=== PATIENT | female | born 1940 | race Caucasian/White ===

== ENCOUNTER 2016-08-27 23:55 | Inpatient (IN) | payer MEDICARE, OTHER ==
--- NOTE | ~2016-08-27 | CN ---
Consultation Report [facility] [address] [place]. [address] NAME: RADHA ALVAREZ : 40 STATUS : ADM IN PAT#: [id number] AGE: 75 ADM/REG DATE : 08/28/16 MR#: [id number] REPORT SERV DATE: 09/17/16 DICTATED BY: GERHARD FRANKS DATE: 09/17/16 REPORT STATUS : Draft TRANSCRIBED BY: MODL DATE: 09/17/16 PSYCHIATRIC CONSULTATION DATE OF CONSULTATION: 09/17/2016 I reviewed this patient's medical record. I discussed patient's status with Dr. Ashton. HISTORY OF PRESENT ILLNESS: Last night this patient who has advanced cardiac and pulmonary failure, made a statement about "wanting to end it all", and said she asked god "to take " her. Today, she told me "I am not getting any better", "I feel bad." When I asked her how she might attempt to hasten her , she said "I would turn off the oxygen." PAST PSYCHIATRIC HISTORY: Review of her old medical records indicates that she has been on an opioid regimen and benzodiazepines for a number of years. She said, she took the Xanax for at least ten years. She was not so sure about the hydrocodone. At this time, these medications appeared to be have been discontinued, possibly to optimize her breathing. SOCIAL HISTORY: She is a alf resident. MENTAL STATUS: She was very weak with noticeable dyspnea. Her mood was dysphoric. She said "I feel bad", "I am breathless", "I have difficulty speaking". "I hurt". Her affect was appropriate. She said, she did not want to continue this struggle. Her thinking was logical. She had no delusions. She had no hallucinations. [facility] - "I thought I would be returning to the alf today." DIAGNOSIS: Depression, associated with a general medical condition. RECOMMENDATIONS: At the discretion of the hospitalist, we should consider restarting her home dose of Xanax and hydrocodone. We should consider if she is a candidate for palliative care. Because of her advanced medical problems with associated weakness and dyspnea, she does not pose a high suicidal risk. Her only plan for suicide if indeed she ever attempted such was to discontinue using supplemental oxygen, and she said she would only do that if she did not begin to feel better. We probably can discontinue special suicide precautions, at the discretion of the hospitalist. BUNNY/STEVEN Gerhard Franks M.D. / [id number] CC: Consultation Report [address] [address] NAME: RADHA ALVAREZ : 40 STATUS : ADM IN PAT#: [id number] AGE: 75 ADM/REG DATE : 08/28/16 MR#: [id number] REPORT SERV DATE: 09/17/16 DICTATED BY: GERHARD FRANKS DATE: 09/17/16 REPORT STATUS : Draft TRANSCRIBED BY: STEVEN DATE: 09/17/16 MD Shubham Hunter M.D.
--- NOTE | ~2016-08-27 | PUL ---
[id number] [place]. [address] NAME: RADHA ALVAREZ : 40 STATUS : ADM IN PAT#: [id number] AGE: 75 ADM/REG DATE : 08/28/16 MR#: [id number] REPORT SERV DATE: 09/04/16 DICTATED BY: AMELIA FORD IV DATE: 09/04/16 REPORT STATUS : Draft TRANSCRIBED BY: MODL DATE: 09/04/16 PULMONARY FUNCTION TEST OVERNIGHT OXIMETRY Studies performed on 3 L of supplemental oxygen. 5 hours and 41 minute of data available for review. The mean oxygen saturation was 95.7%. The lowest scored saturation was 68%. The patient spent 12 minutes and 40 seconds with oxygen saturations less than 88%. There were two periods of oxygen saturation variation of sawtooth pattern that were clustered. It was during these episodes where the oxygen desaturations occurred. The remainder of the study oxygen saturations were well above 90%. IMPRESSION: Significant nocturnal hypoxemia on 3 L of supplemental oxygen. There is a pattern consistent with obstructive sleep apnea that would be mild based on a desaturation index of 14 per hour. Otherwise, oxygen saturations are adequate on the 3 L of supplemental oxygen. Would continue the current supplemental oxygen and obtained a formal polysomnography if clinically indicated. JARAD/STEVEN elia Ford IV, M.D. / [id number] CC: MD Shubham Hunter M.D.
--- NOTE | ~2016-08-27 | HP ---
History And Physical [id number] [facility] [place]. [address] NAME: RADHA ALVAREZ : 40 STATUS : ADM IN [facility]#: [id number] AGE: 75 ADM/REG DATE : 08/28/16 MR#: [id number] REPORT SERV DATE: 08/28/16 DICTATED BY: LISA CORONEL DATE: 08/28/16 REPORT STATUS : Draft TRANSCRIBED BY: MODL DATE: 08/28/16 DATE OF ADMISSION: 08/28/2016 POINT OF ENTRY: [facility]. PRIMARY CARE PHYSICIAN: Dr. Shubham Hurst. PRIMARY SUPERVISOR BAKING: Dr. Harp. CHIEF COMPLAINT: Shortness of breath and weight gain. HISTORY OF PRESENT ILLNESS: Ms. Alvarez is a 75-year-old female with history of chronic diastolic congestive heart failure as well as COPD, on chronic 2 to 3 L by nasal cannula as well as cor pulmonale and pulmonary hypertension who presents to the emergency department today with reports of progressive worsening shortness of breath, dyspnea on exertion, lower extremity edema as well as reported 14-pound weight gain over the past five days. Patient states that she has always had shortness of breath, but for the last few weeks has progressively worsened. It is primarily with exertion. She denies any shortness of breath at rest or orthopnea, but does endorse some worsening of her chronic lower extremity edema. Patient also states that she has had a 14-pound weight gain over the past five days as measured by the staff at her at [facility]. Patient states that she does not think that she is on a sodium or fluid restricted diet while at [facility] and states that the food there is very salty to begin with. Reports compliance with her Bumex; however, states that on days of chemotherapy, does not take her Bumex. She denies any recent fevers, night sweats, chills, chest pain, abdominal pain, nausea, vomiting, diarrhea, constipation, melena, hematochezia, or hematemesis. States she has had a recent bout of bronchitis, which she feels is changed over now to pneumonia as she continues to cough up blood-tinged sputum; however, that has improved dramatically over the last few days. On initial evaluation in the emergency department is notable for stable vital signs. BNP elevated at 695. Chest x-ray, very poor inspiration, but does show marked cardiomegaly as well as some intravascular volume overload. Troponin was negative. Hemoglobin/hematocrit 9.6/33.0 are down from last known values in 03/2016. Patient was given 1 mg of IV Bumex and admitted to the Hospitalist Service. REVIEW OF SYSTEMS: Comprehensive review of systems otherwise negative unless listed in history of present illness. PREVIOUS MEDICAL HISTORY: 1. Chronic diastolic congestive heart failure. 2. COPD, on 2-3 L by nasal cannula. History And Physical [address] [address] NAME: RADHA ALVAREZ : 40 STATUS : ADM IN [facility]#: [id number] AGE: 75 ADM/REG DATE : 08/28/16 MR#: [id number] REPORT SERV DATE: 08/28/16 DICTATED BY: LISA CORONEL DATE: 08/28/16 REPORT STATUS : Draft TRANSCRIBED BY: MODTiago DATE: 08/28/16 3. Chronic hypercarbic and hypoxic respiratory failure. 4. Cor pulmonale. 5. Pulmonary hypertension. 6. Aortic sclerosis. 7. Permanent atrial fibrillation, status post ablation. 8. 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 9. Morbid obesity. 10.Obstructive sleep apnea and obesity hypoventilation syndrome, noncompliant with CPAP or BiPAP. 11.Hypothyroidism. 12.Insulin-dependent diabetes mellitus type 2. SURGICAL HISTORY: 1. Atrial fibrillation ablation. 2. Cataracts. 3. Tonsillectomy. ALLERGIES: 1. TYLENOL SINUS. 2. CODEINE. 3. AMIODARONE. 4. STATINS. 5. ALBUTEROL. 6. LASIX. 7. SOTALOL. 8. DILTIAZEM. HOME MEDICATIONS: 1. Tylenol 650 mg q.4 hours p.r.n. 2. Albuterol two puff inhalation q.i.d. p.r.n. 3. Xanax 0.25 mg b.i.d. 4. Xanax 0.25 mg p.r.n. 5. Aspirin 325 mg daily. 6. Tenormin 12.5 mg with lunch. 7. Tessalon Perles 200 mg t.i.d. 8. Bisacodyl 10 mg p.o. daily p.r.n. 9. Bumex 2 mg daily. 10.Calcium carbonate 500 mg q.i.d. 11.Pradaxa 150 mg b.i.d. 12.Delsym 60 mg q.12 hours p.r.n. 13.Colace 100 mg b.i.d. p.r.n. 14.Pepcid 20 mg b.i.d. 15.Breo Ellipta one puff daily. 16.Robitussin 100 mg q.6 hours p.r.n. 17.[place] 5/325, one tab q.i.d. 18.Insulin sliding scale. 19.Atrovent q.4 hours p.r.n. History And Physical [address] [address] NAME: RADHA ALVAREZ : 40 STATUS : ADM IN [facility]#: [id number] AGE: 75 ADM/REG DATE : 08/28/16 MR#: [id number] REPORT SERV DATE: 08/28/16 DICTATED BY: LISA CORONEL DATE: 08/28/16 REPORT STATUS : Draft TRANSCRIBED BY: STEVEN DATE: 08/28/16 20.Levothyroxine 50 mcg daily. 21.Melatonin 3 mg at bedtime. 22.Milk of magnesia 30 mL daily p.r.n. 23.Singulair 10 mg daily. 24.Multivitamin one tab daily. 25.Zofran 4 mg q.i.d. p.r.n. 26.MiraLAX 17 g daily. 27.Potassium chloride 20 mEq daily. SOCIAL HISTORY: Denies any tobacco, alcohol, or illicits, is currently living in [facility]. FAMILY MEDICAL HISTORY: Mother with diabetes. Father's history is unknown as parents were . Siblings' health history is unknown or otherwise healthy. LABS AND IMAGIN. White count is 5.3, hemoglobin is 9.6, hematocrit is 33.0 platelet count is diffusing 235, INR is 2.8. 2. Sodium is 140, potassium 4.1, chloride 99, carbon dioxide 40, BUN 25, creatinine 0.80 glucose is 139, calcium is 9.0, is magnesium is 2.2. 3. Troponin less than 0.02. BNP 695. 4. EKG per my review shows atrial fibrillation with no evidence of any acute ischemia or infarction. 5. Chest x-ray per my review limited study secondary to limited penetration and body habitus; however, it does show cardiomegaly, right pleural effusion as well as some intravascular volume overload and pulmonary venous congestion. PHYSICAL EXAMINATION: VITAL SIGNS: Temperature is 97.5 degrees Fahrenheit, pulse is 64, respirations 24, saturating 90% on 3 L by nasal cannula, blood pressure 117/59. GENERAL: Patient is awake, alert, in no acute distress. Resting comfortably. She is a morbidly obese, chronically ill-appearing, elderly female, in no acute distress. HEENT: Atraumatic and normocephalic. Moist mucous membranes. Pupils are equal, round, reactive to light and accommodation. Extraocular eye movements are intact. No scleral icterus. NECK: Positive jugular venous distention. No carotid bruits. Jugular venous distention is up to the angle of jaw. CARDIAC: Irregularly irregular rate and rhythm. 2/6 systolic murmur best over left lower sternal border. Normal S1, S2. LUNGS: Decreased breath sounds at bases along with bibasilar inspiratory crackles and rales, in no acute distress. ABDOMEN: Obese, soft, nontender, nondistended. Good bowel sounds. No rebound, guarding, or rigidity. EXTREMITIES: Warm and well perfused. Patient has evidence of chronic venous stasis and lower extremity lymphedema with 2+ lower extremity edema. SKIN: Warm and dry. PSYCH: Affect appropriate. History And Physical [address] [address] NAME: RADHA ALVAREZ : 40 STATUS : ADM IN PAT#: [id number] AGE: 75 ADM/REG DATE : 08/28/16 MR#: [id number] REPORT SERV DATE: 08/28/16 DICTATED BY: LISA CORONEL DATE: 08/28/16 REPORT STATUS : Draft TRANSCRIBED BY: MODTiago DATE: 08/28/16 NEURO: Alert and oriented x3. Cranial nerves II through XII are grossly intact. Speech is normal. Gait not assessed. ASSESSMENT AND PLAN: Ms. Alvarez is a 75-year-old female who presents with worsening shortness of breath as well as weight gain and found to have acute on chronic diastolic congestive heart failure. PROBLEM LIST: 1. Acute on chronic diastolic congestive heart failure. 2. Anemia. 3. Chronic hypercarbic and hypoxic respiratory failure. 4. Chronic obstructive pulmonary disease. 5. Cor pulmonale with pulmonary hypertension. 6. Hemoptysis. 7. Non-Hodgkin lymphoma, currently on chemotherapy. PLAN: 1. Acute on chronic diastolic congestive heart failure. We will initially diurese patient with Bumex 1 mg q.8 hours as well as place her on sodium fluid restriction as well as daily weights. It has been about five months since her last echocardiogram, we will repeat it. 2. Chronic hypoxic and hypercapnic respiratory failure. Patient appears to be well compensated at this time, but we will check an ABG given evidence of volume overload and shortness of breath. 3. COPD. Do not appreciate any exacerbation at this time, continue to monitor. 4. Anemia. Patient does have approximately three-point drop in her hemoglobin levels from 03/2016. She denies any known bleeding except for occasional epistaxis. We will check an occult stool as well as iron studies. 5. Reports of hemoptysis. Given reports of sputum production and hemoptysis, we will check a CT of the chest given the limited technical quality of the chest x-ray. 6. DVT prophylaxis. Patient is already on Pradaxa. CODE STATUS: The patient wishes to be full code. JCB/MODL Lisa Coronel MD / [id number] CC: MD Shubham Crane M.D. C. Samuel Ledford, M.D.
--- NOTE | ~2016-08-27 | DS ---
Discharge Summary [address] [place]. [address] NAME: RADHA ALVAREZ : 40 STATUS : ADM IN PAT#: [id number] AGE: 76 ADM/REG DATE : 08/28/16 MR#: [id number] REPORT SERV DATE: 09/23/16 DICTATED BY: FEDE WILSON DATE: 09/23/16 REPORT STATUS : Draft TRANSCRIBED BY: STEVEN DATE: 09/23/16 ADMISSION DATE: 08/28/2016 DISCHARGE DATE: 09/23/2016 Please also refer to history of present illness dictated by Dr. Silverio Owens on 08/28/2016. Please refer to multiple interim discharge summaries dictated by Jesús Bonilla on 09/01/2016, by Dr. Ashton 09/07/2016, by Dr. Logan 09/13/2016, and by Dr. Bonilla on 09/20/2016. I personally saw this patient for last three days, 09/21/2016, 09/22/2016, and 09/23/2016. DISCHARGE DIAGNOSES: 1. Chronic respiratory failure with hypoxemia. 2. Chronic pain. 3. Acute on chronic diastolic congestive heart failure. 4. Hyponatremia, chronic. 5. Urinary tract infection, extended-spectrum beta-lactamases, and pseudomonas. Completed antibiotics. 6. Hypothyroidism. 7. History of Hodgkin lymphoma. 8. Poor functional state. 9. Chronic pain. The patient refused to have any treatments and as well as she wanted comfort care. This was discussed on the previous interim discharge summary by Jesús Bonilla and the patient was waiting for [facility] approval. The patient was approved by [facility] and she is going to [facility]. I spoke also with the patient's sister. She was also in agreement for the patient to go to [facility]. The patient was discharged to [facility] in stable condition. DICTATED BY: Peter Lindsey/STEVEN Fede Wilson M.D. / [id number] CC: Peter Lindsey M.D.
--- NOTE | ~2016-08-27 | IDS ---
Interim Discharge Summary [facility] [address] [place]. [address] NAME: RADHA ALVAREZ : 40 STATUS : ADM IN PAT#: [id number] AGE: 75 ADM/REG DATE : 08/28/16 MR#: [id number] REPORT SERV DATE: 09/07/16 DICTATED BY: ADRY GUEVARA DATE: 09/07/16 REPORT STATUS : Draft TRANSCRIBED BY: MODL DATE: 09/07/16 ADMISSION DATE: 08/28/2016 DISCHARGE DATE: INTERIM DIAGNOSES: Cor pulmonale with acute on chronic diastolic heart failure, refractory edema and anasarca, persistently elevated CO2, chronic retainer, possible chronic COPD, with chronic respiratory failure on chronic O2 usage, possible obesity hypoventilation syndrome component, hypothyroidism, morbid obesity, chronic atrial fibrillation, chronic debility, diabetes type 2. CONSULTANTS: Pulmonary HISTORY OF PRESENT ILLNESS: 75-year-old female, who is now currently a resident of [facility], who presented with multiple repeat admissions for her complaints of dyspnea on exertion, weight gain, and progressive edema. Please see interim course by Jesús Bonilla and H and P by Dr. Owens for complete details. In continuum of hospital course, the patient has been on aggressive IV diuretics with Bumex for significant volume overload. The patient was trialed with Zaroxolyn doses intermittently without resolution. The patient did require IV Lasix drip with fairly good results, however, upon stopping Lasix drip and repeat imaging, the patient had already had additional fluid failure changes on chest x-ray. The patient is now required three additional days of Lasix drip with titrating doses with almost 35 pounds of fluid removal, symptomatic, the patient has felt much better. Additional day of Lasix drips was continued due to chest x-ray still showing fluid failure changes. We will have likely transition to p.o. to control schedule in a.m. The patient has now been more compliant with fluid restriction, which has been notable jeffery in the past. Of note, the patient did have recent chemotherapy by Dr. Dillon and had significant sputum culture that was sent to the lab and awaiting final results. Lytes have continued to be optimized, the patient will need continued physical therapy in anticipation of return back to senior living facility, hopefully in the next three to five days, pending ability to transition to p.o. safely and improved oxygenation status. I have discussed with Pulmonary about chronic CO2 retention. It appears the patient has elevated CO2 at baseline, but is functional at these levels. The patient has refused on repeated accounts even during this stay to wear BiPAP. The patient has requested her wishes of DNR/DNI and has been reflected on POLST form on chart. These desires have also been discussed with family, granddaughter as per the patient's wishes at bedside, who has also been updated on the patient's course. Care to be resumed by Medicine team in a.m. DDN/MODL Adry Guevara MD / [id number] Interim Discharge Summary [address] [address] NAME: RADHA ALVAREZ : 40 STATUS : ADM IN PAT#: [id number] AGE: 75 ADM/REG DATE : 08/28/16 MR#: [id number] REPORT SERV DATE: 09/07/16 DICTATED BY: ADRY GUEVARA DATE: 09/07/16 REPORT STATUS : Draft TRANSCRIBED BY: STEVEN DATE: 09/07/16 CC: MD Shubham Hunter M.D.
--- NOTE | ~2016-08-27 | IDS ---
Interim Discharge Summary [facility] [address] [place]. [address] NAME: RADHA ALVAREZ : 40 STATUS : ADM IN [facility]#: [id number] AGE: 75 ADM/REG DATE : 08/28/16 MR#: [id number] REPORT SERV DATE: 09/01/16 DICTATED BY: JESÚS KIRKLAND DATE: 09/01/16 REPORT STATUS : Draft TRANSCRIBED BY: MODL DATE: 09/01/16 ADMISSION DATE: 08/28/2016 DISCHARGE DATE: CURRENT INTERIM DIAGNOSES: List includes: 1. [id number] diastolic heart failure with refractory edema and anasarca. 2. Elevated CO2 43. 3. Chronic obstructive pulmonary disease, chronic respiratory failure, chronic O2 usage. 4. Hypothyroidism, most recent TSH 4.520. 5. Morbid obesity. 6. Chronic atrial fibrillation. 7. Diabetes type 2. HISTORY OF PRESENT ILLNESS: This is a pleasant 75-year-old white female, who presented with shortness of breath and weight gain, where she had been at [facility]. She had dyspnea with exertion, weight gain, and worsening edema. Please see the initial H and P of Dr. Silverio Owens as the patient was admitted to the Hospitalist Service for further evaluation and treatment. PROCEDURES AND IMAGING DURING THIS ADMISSION: Included a CT of the chest that showed small bilateral pleural effusions and bibasilar atelectasis, suspected interstitial edema, mild ascites, and severe body wall edema in both right and left flank and an echocardiogram showing an ejection fraction of 50% with moderate pulmonary hypertension, and small pericardial effusion. CONTINUATION IN HOSPITAL COURSE: I began seeing the patient on 08/28/2016, where she had been placed on aggressive IV diuresis of IV Bumex and this was continued. The above- described echocardiogram and CT scan were done as well and reviewed. Of note, the patient's TSH was slightly elevated at 4.520, so her Synthroid dosage was adjusted upward from 50 mcg to 75 mcg with instructions to recheck in six weeks. She had some mild pyuria on urinalysis, however, urine culture has been negative. She continued to have refractory edema despite continued IV Bumex and also the addition of Zaroxolyn, so I placed her on a Lasix drip, which has actually increased her diuresis well and I have continued her on that for now. She has been mobilized with physical therapy. Heart failure education team has seen the patient and disposition is to return to senior living facility once she is more euvolemic and I will continue to follow her lab work for electrolyte replacement and also of note, she recently underwent some chemotherapy followed by Dr. Dillon as well. Overall, the patient has improved in the past 24 hours with diuresis, less shortness of breath overall, and was able to participate in physical therapy better. CSC/ILIANAL Jesús Kirkland NP Interim Discharge Summary [address] [address] NAME: RADHA ALVAREZ : 40 STATUS : ADM IN PAT#: [id number] AGE: 75 ADM/REG DATE : 08/28/16 MR#: [id number] REPORT SERV DATE: 09/01/16 DICTATED BY: JESÚS KIRKLAND [facility] DATE: 09/01/16 REPORT STATUS : Draft TRANSCRIBED BY: STEVEN DATE: 09/01/16 / [id number] CC: MD Shubham Hunter M.D.
--- NOTE | ~2016-08-27 | IDS ---
Interim Discharge Summary [facility] [address] [place]. [address] NAME: RADHA ALVAREZ : 40 STATUS : ADM IN PAT#: [id number] AGE: 76 ADM/REG DATE : 08/28/16 MR#: [id number] REPORT SERV DATE: 09/20/16 DICTATED BY: JESÚS KIRKLAND DATE: 09/20/16 REPORT STATUS : Draft TRANSCRIBED BY: MODL DATE: 09/20/16 ADMISSION DATE: 08/28/2016 DISCHARGE DATE: INTERIM DIAGNOSES: List includes: 1. Acute on chronic diastolic heart failure with cor pulmonale. 2. Leukocytosis and hospital-acquired pneumonia. 3. Acute on chronic hypercapnic and hypoxic respiratory failure. 4. Urinary tract infection growing ESBL E. coli and Pseudomonas. 5. Hyponatremia. 6. Hypothyroid. 7. Diabetes type 2. 8. Hemorrhoids. HISTORY OF PRESENT ILLNESS: This 76-year-old white female with multiple comorbidities who originally presented from her long-term facility [facility] with shortness of breath and severe weight gain, dyspnea with exertion and worsening edema. Please see initial H and P of Dr. Silverio Owens. Please see the interim summaries of myself, Dr. Ar Ashton, and Dr. Yeison Logan as this interim summary will cover the dates of 09/14/2016 to 09/20/2016. New consult as of this dictation include [facility]. CONTINUATION OF HOSPITAL COURSE: The patient had reached somewhat of a plateau with her weight loss and fluid volume status and was started to be trialed on metolazone oral antidiuretic but her lab work reflected decreasing sodium as her lab work fell from 132 to 129 to 126. Her metolazone was eventually discontinued, and she was started back on her Bumex diuretic. She was at first being worked up for trilogy approval and disposition back to [facility]. However, as the week progressed, she began to withdraw from the treatment plan and the overall plan of care, refused to work with the nursing staff with the respiratory staff and with the physical therapy staff, occupational therapy staff. She was actually seen by psychiatric Dr. Gerhard Espinosa at one point, as she was concerned actually about some suicidal ideation. This seems to have resolved but she has continued to be withdrawn and more depressed and has declined to eat, declined to get out of bed, and refusing medications and also treatments. She had a spike in her white blood cells and was concerned about hospital-acquired pneumonia so she was started on vanc and Zosyn during the week and also she had significant pyuria along with a low-grade fever that has grown the above-described bacteria, and she is receiving dose of fosfomycin for that as well. Toward, the end of the week I had a lengthy discussion with the patient and her sister Kalyani about her clinical course, and prognosis and the worsening clinical course and her withdrawal from her participation in care, and both have agreed to more palliative and comfort focused care as the best option, and [facility] has been consulted and is currently evaluating the patient for approval and hopeful approval back to [facility] under [facility]. I have updated the patient and the patient's sister at bedside of this progress. They are both in agreement but overall her sodium continues to decline, her creatinine is slightly elevated over the week, and she continued treatment for her recurrent infections. Interim Discharge Summary [address] [place]. [address] NAME: RADHA ALVAREZ : 40 STATUS : ADM IN PAT#: [id number] AGE: 76 ADM/REG DATE : 08/28/16 MR#: [id number] REPORT SERV DATE: 09/20/16 DICTATED BY: JESÚS KIRKLAND DATE: 09/20/16 REPORT STATUS : Draft TRANSCRIBED BY: STEVEN DATE: 09/20/16 [facility]/STEVEN Jesús Kirkland NP / [id number] CC: MD Shubham Hunter M.D.
--- NOTE | ~2016-08-27 | IDS ---
Interim Discharge Summary [facility] [address] [place]. [address] NAME: RADHA ALVAREZ : 40 STATUS : ADM IN PAT#: [id number] AGE: 75 ADM/REG DATE : 08/28/16 MR#: [id number] REPORT SERV DATE: 09/13/16 DICTATED BY: DERRICK BHATIA DATE: 09/13/16 REPORT STATUS : Draft TRANSCRIBED BY: MODL DATE: 09/13/16 ADMISSION DATE: 08/28/2016 DISCHARGE DATE: CURRENT HOSPITAL DIAGNOSES: 1. Cor pulmonale with acute on chronic diastolic heart failure. 2. Anasarca. 3. Persistently elevated CO2. 4. Probable chronic obstructive pulmonary disease. 5. Hypoventilation obesity syndrome. 6. Hypothyroidism. 7. Chronic atrial fibrillation on Pradaxa. 8. Diabetes. CONSULTATIONS AND PROCEDURES: As listed in interim summary by Dr. Ashton on 09/07/2016. CURRENT PHYSICAL FINDINGS AND HISTORY OF PRESENT ILLNESS: Please see initial H and P by Dr. Owens on 08/28/2016, as well as interim summary by Jesús Bonilla, on 09/01/2016, and Dr. Ashton on 09/06/2016. I assumed the patient's care on 09/07/2016, and will dictate from that point. Basically, the patient had been admitted with above complaints and was being diuresed as tolerated. She had already lost over 20 pounds closer to 30 on at that time I took care of her on 09/07/2016, started taking care of her on 09/07/2016. Electrolytes and renal function were not compromised. She was tolerating supplemental O2. She was still minimally active with PT. Blood sugars were well controlled. Her atrial fib was rate controlled and as mentioned, she was on anticoagulants. On 09/08/2016, there was not much change. She did not have any significant complaints. Pulmonary was continuing to follow and was making periodic recommendations in her Bumex adjusting. On 09/09/2016, serial electrolytes were followed. She continued to diuresis well and lose fluid. Her CO2s were starting to climb, however, so on 09/10/2016, she was switched to Diamox. She had an episode in middle of the afternoon on 09/10/2016, where she became hypoxic by pulse oximetry. She responded rapidly to supplemental O2. Additional Diamox was given. On 09/11/2016, she was losing less weight, but was responding to the diuretics and lab was again stable. On the late evening on 09/12/2016, she had another episode, where she seemed obtunded, although, her ABG was essentially baseline. On 09/13/2016, after long discussion with the patient and family current plan is to try and get her qualified for BiPAP or trilogy and return back to [facility] for continued diuresis and Care. DISPOSITION: We will continue diuresis with Diamox as tolerated. Pulmonary is assisting in getting BiPAP or trilogy at [facility]. She will continue her Ayala catheter. Blood sugars and heart rate are well controlled and lab aside from her CO2 retention is reasonable. TLF/MODL Derrick Cassidy Interim Discharge Summary [address] [address] NAME: RADHA ALVAREZ : 40 STATUS : ADM IN PAT#: [id number] AGE: 75 ADM/REG DATE : 08/28/16 MR#: [id number] REPORT SERV DATE: 09/13/16 DICTATED BY: DERRICK BHATIA DATE: 09/13/16 REPORT STATUS : Draft TRANSCRIBED BY: MODL DATE: 09/13/16 Peter Bhatia / [id number] CC: Peter Mayer M.D.
--- NOTE | ~2016-08-27 | CN ---
Consultation Report [facility] [address] [place]. [address] NAME: RADHA ALVAREZ : 40 STATUS : ADM IN PAT#: [id number] AGE: 75 ADM/REG DATE : 08/28/16 MR#: [id number] REPORT SERV DATE: 09/03/16 DICTATED BY: AMELIA FORD IV DATE: 09/03/16 REPORT STATUS : Draft TRANSCRIBED BY: MODL DATE: 09/03/16 PULMONARY CONSULTATION DATE OF CONSULTATION: 09/03/2016 REASON FOR REQUEST: Hypercapnia. HISTORY OF PRESENT ILLNESS: History was obtained from the records and from the patient. Ms Alvarez is a 75-year-old female with a history of acute on chronic diastolic heart failure, chronic atrial fibrillation, hypoxemic chronic hypercapnia, obstructive sleep apnea, noncompliant with CPAP, pulmonary hypertension, B-cell lymphoma, diabetes mellitus, and hypothyroidism who was admitted on the 08/28/2016 with increased weight gain, shortness of breath with peripheral edema, and worsened hypercapnia. The patient has had multiple hospitalizations for decompensation of acute on chronic diastolic heart failure. She carries a diagnosis of "COPD" for which she is on bronchodilator medications. Previous pulmonary function studies in 2014 demonstrated restrictive changes though with borderline hyperinflation. She was only recently placed on bronchodilator medications with Breo Ellipta which she uses daily and an Atrovent nebulizer that she uses on an as-needed basis. She had previously been on supplemental oxygen only at nighttime after being noncompliant with her CPAP, however, currently, she is on supplemental oxygen 24/7. The patient recently was treated for pneumonia and had a cough productive of bloody phlegm which she states she continues to have occasionally. She denies any epistaxis. She denies fevers, chills, or sweats. The patient carries a diagnosis of obstructive sleep apnea of unclear severity for which she was noncompliant with the CPAP therapy. This was almost 10 years ago. She does use supplemental oxygen at nighttime. PULMONARY HISTORY: Remarkable for no history of childhood asthma. She has had pneumonia on multiple occasions and carries the diagnosis of adult obstructive lung disease. She is a lifelong nonsmoker though had secondary smoke exposure from her father. She is up to date on her immunizations though is not quite clear about her Prevnar 13 vaccination status. PAST MEDICAL HISTORY: Remarkable for history of: 1. Acute on chronic diastolic heart failure. 2. Chronic atrial fibrillation. 3. Chronic hypercapnia. 4. Obstructive sleep apnea, noncompliant with CPAP. 5. Pulmonary hypertension. 6. B-cell lymphoma. 7. Diabetes mellitus. 8. Hypothyroidism. SURGERIES: Consultation Report [facility] [id number] [place]. [address] NAME: RADHA ALVAREZ : 40 STATUS : ADM IN PAT#: [id number] AGE: 75 ADM/REG DATE : 08/28/16 MR#: [id number] REPORT SERV DATE: 09/03/16 DICTATED BY: AMELIA FORD IV DATE: 09/03/16 REPORT STATUS : Draft TRANSCRIBED BY: STEVEN DATE: 09/03/16 1. Atrial fibrillation ablation. 2. Cataract surgery. 3. Tonsillectomy and adenoidectomy. ALLERGIES: THE PATIENT IS INTOLERANT OF MULTIPLE MEDICATIONS WITHOUT CLEAR ALLERGIES TO INCLUDE TYLENOL, CODEINE, AMIODARONE, STATINS, ALBUTEROL, LASIX, SOTALOL, AND DILTIAZEM. CURRENT MEDICATIONS: The patient is on aspirin 325 mg daily, Atrovent nebulizer solution while awake q.4 hours, Bumex 2 mg twice a day, Colace 100 mg twice a day, Dulera two puffs twice a day, MD Carey four times a day, NovoLog before meals, Pepcid 20 mg twice a day, potassium 40 mEq daily, Pradaxa 150 mg daily, Singulair 10 mg at nighttime, Synthroid 75 mcg daily, Tenormin 12.5 mg at lunch, and multivitamin daily. SOCIAL HISTORY: Remarkable for no tobacco, alcohol, or illicit drug use. She is , has no children. FAMILY HISTORY: Remarkable for mother with diabetes. She is unaware of her father's history and has a half brother and sister which have no medical problems. REVIEW OF SYSTEMS: 14-systems reviewed and pertinent positives as noted above. PHYSICAL EXAMINATION: GENERAL: This is a morbidly obese, elderly female, in no current distress. VITAL SIGNS: Temperature is 97.6, respiratory rate is 20, saturations are 93% on 2 L, pulse is 85, blood pressure is 126/59. HEENT: Normocephalic, atraumatic. Extraocular movements are intact. Pupils react to light. Sclerae and conjunctivae normal. She has a nasal cannula in place. She has a Mallampati 3 airway with very poor dentition with missing teeth, gingival disease, and a carious teeth. NECK: Without any palpable lymphadenopathy or thyromegaly. CHEST: The patient has bibasilar inspiratory crackles at least half way up bilaterally. No wheezes or rhonchi are noted. Breath sounds are symmetrically diminished. CARDIOVASCULAR: Jugular venous pulsations are difficult to elicit secondary to body habitus. She has 1+ carotid upstrokes. No obvious bruit. She has an irregularly irregular S1, S2 with a 2/6 systolic murmur at the upper sternal border. No clear S3 is noted. Peripheral pulses are diminished. ABDOMEN: Morbidly obese, soft. There are hypoactive bowel sounds. There is no palpable hepatosplenomegaly or masses. EXTREMITIES: Demonstrate chronic venous stasis changes. There is some trace residual peripheral edema. NEUROLOGIC: The patient can move all extremities. Strength is 5-/5 and sensation intact to light touch. LABORATORY DATA: Chest x-ray demonstrates marked cardiomegaly with increased pulmonary venous congestion with small pleural effusions and what appeared to be some interstitial Consultation Report [facility] [id number] [facility] [place]. [address] NAME: RADHA ALVAREZ : 40 STATUS : ADM IN [facility]#: [id number] AGE: 75 ADM/REG DATE : 08/28/16 MR#: [id number] REPORT SERV DATE: 09/03/16 DICTATED BY: AMELIA FORD IV DATE: 09/03/16 REPORT STATUS : Draft TRANSCRIBED BY: STEVEN DATE: 09/03/16 edema. This was confirmed on a chest CT scan from earlier. CBC: Hemoglobin 10, hematocrit 35.2, platelet count was 276,000, white blood cell count is 7.2. Chemistry: Sodium 132, potassium 3.4, chloride is 84, bicarbonate is greater than 45, BUN is 23, creatinine 0.52, glucose are 135, magnesium is 1.8. Earlier blood gas; pH 7.41, pCO2 of 74, pO2 of 95. ASSESSMENT AND PLAN: 1. Respiratory. It is not clear that the patient truly has chronic obstructive pulmonary disease with her likely having obesity hypoventilation syndrome and hypercapnia secondary to chronic diastolic heart failure. We would continue the bronchodilator medications for now. Atrovent will be given via EzPAP. Oxygen will be titrated to maintain saturations in the 90% to 94% range. Overnight oximetry will be obtained on room air. She is noncompliant with CPAP, BiPAP and would likely not use this unless she was in dire respiratory stress. 2. Renal. I will replace the patient's potassium and magnesium. Check phosphate level. Diamox will be given for her alkalosis with a repeat chemistries tomorrow. 3. Infectious disease. A sputum was sent for Gram stain culture. I will probe procalcitonin level as well as blood in the lab. 4. Cardiovascular. We would push diuretics until the creatinine rises since she is currently warm and wet. Her blood pressure is adequately controlled. We will repeat a BNP in morning labs. 5. Endocrinologic. The patient has agreed with the increased dose of the Synthroid associated with a higher TSH. 6. Heme. The patient has microcytic parameters and was iron deficient on presentation. I recommend institution of iron. Thank you for consulting us. I will follow the patient with you. NM/MODL elia Ford IV, M.D. / [id number] CC: MD Shubham Hunter M.D.
[~2016-08-27 23:55] MED LIST: 8 HOUR650 MG PO; AMARYL2 PO; AMARYL4 PO; ATEN25 PO; ATROVENTUD INH; AUG875 PO; BEN25 PO; BENICAR HCT1 TA1 PO; BENICAR HCT1 TA2 PO; BIOTIN OTC PO; BIOTIN5 MG OR; BREO ELLIPTA INH; BROVANA15 MCG INH; BUM1 PO; BUM2 PO; BYETTA SC; C1 PO; CARDCD240 PO; CARDU2 PO; CARTIA XT240 MG/24 PO; CEFT5 PO; CENTRUM PO; CHEMO IV; COUMADIN3 MG PO; COUMADIN4 MG PO; DCN100 PO; DEMA20 PO; DRONED400 PO; FLECAINIDE50 MG PO; FLONASE NAS; GLUCOTROL5 PO; HARD NAILS PO; HUMALOG SC; HYZAAR1 TAB PO; IPRA17AE INH; JANTOVEN1 MG PO; JANTOVEN4 MG PO; JANTOVEN5 MG PO; KDUR20 PO; KLOR-CON 1010 MEQ PO; KLOR-CON M2020 MEQ PO; L40 PO; LEVOTHYROXIN50 MCG PO; LORT2.5 PO; MULTIPLE VIT PO; MULTIVIT/MIN PO; MULTIVITAMI1 PO; NORCO1 TA2 PO; NORCO1 TAB PO; OCEAN NAS; OXYGEN NAS; PACERONE400 MG PO; PEP20 PO; PRILOSEC40 MG PO; PULRESP.5 INH; RITUXAN; SINGULAIR1 PO; T PO; TAMBO50 PO; THERGRANM PO; VITC500 PO; X25 PO; XANAX1 MG PO; XOPENEX0.63 MG INH; ZESTRIL2.5 MG PO; ZOFRAN ODT4 MG PO; [UNRECOGNIZED DRUG - REMARK]
[2016-08-28 01:30] LABS: BASOPHILS 0.8 %; BASOPHILS ABSOLUTE 0.04 10/3/uL (0.0-0.16); EOSINOPHILS 4.3 %; EOSINOPHILS ABSOLUTE 0.23 10/3/uL (0.0-0.53); IMMATURE GRANULOCYTES 0.2 %; IMMATURE GRANULOCYTES ABSOLUTE 0.01 10/3/uL (0.0-0.11); LYMPHOCYTES 15.8 %; LYMPHOCYTES ABSOLUTE 0.84 10/3/uL (0.67-4.30); MEAN CORPUS HGB CONC 29.1 g/dL (32.0-36.0); MEAN PLATELET VOLUME 9.3 fL (9.2-13.0); MONOCYTES 11.8 %; MONOCYTES ABSOLUTE 0.63 10/3/uL (0.21-1.20); NEUTROPHILS 67.1 %; NEUTROPHILS ABSOLUTE 3.58 10/3/uL (2.02-8.40); PLATELET COUNT 235 10/3/uL (150-400); RBC DISTRIBUTION WIDTH 15.3 % (12.0-16.0); RED CELL COUNT 3.78 10/6/uL (4.0-5.6); WHITE BLOOD CELLS 5.3 10/3/uL (4.5-10.5)
[2016-08-28 01:31] LABS: HEMOGLOBIN 9.6 g/dL (12.0-16.0); MANUAL DIFF NO %; MEAN CORPUSCULAR HEMOGLOB 25.4 pg (26.0-34.0); MEAN CORPUSCULAR VOLUME 87.3 fL (80-100)
[2016-08-28 01:39] LABS: INTERNATIONAL NORMAL RATI 2.8 UNITS (-)
[2016-08-28 01:40] LABS: PROTIME (NOT ORD) 29.6 SEC (12.0-14.5)
[2016-08-28 01:53] LABS: CHEST PAIN PROFILE TAT 0 Hrs 27 Mins; GFR AFRICAN AMERICAN 84 ML/MIN (>=60); GFR NON AFRICAN AMERICAN 72 ML/MIN (>=60); GLUCOSE, SERUM 139 MG/DL (60-99); SODIUM, SERUM 140 MMOL/L (135-148); TROPONIN I <0.02 NG/ML (<0.05)
[2016-08-28 01:56] LABS: BUN (BLOOD UREA NITROGEN) 25 MG/DL (6-23); CHLORIDE, SERUM 99 MMOL/L (96-112); CO2 (CARBON DIOXIDE) 40 MMOL/L (24-34); POTASSIUM, SERUM 4.1 MMOL/L (3.5-5.3)
[2016-08-28] MEDS ORDERED: X25 PO ×2 (02:42→02:50)
[2016-08-28] MEDS ORDERED: ASABAYER PO (02:42)
[2016-08-28] MEDS ORDERED: BUM2 PO (02:43)
[2016-08-28] MEDS ORDERED: PEP20 PO (02:43)
[2016-08-28] MEDS ORDERED: ATEN25 PO (02:43)
[2016-08-28] MEDS ORDERED: SYN.05 PO (02:44)
[2016-08-28] MEDS ORDERED: SINGULAIR1 PO (02:44)
[2016-08-28] MEDS ORDERED: NOVOPEN SC (02:45)
[2016-08-28] MEDS ORDERED: KDUR20 PO (02:47)
[2016-08-28] MEDS ORDERED: PRADAXA150 MG PO (02:47)
[2016-08-28] MEDS ORDERED: MIRALAX POWDER1 PKT PO (02:47)
[2016-08-28] MEDS ORDERED: THERGRANM PO (02:48)
[2016-08-28] MEDS ORDERED: T PO (02:49)
[2016-08-28] MEDS ORDERED: BISR PR (02:50)
[2016-08-28] MEDS ORDERED: TESSALON200 MG PO (02:50)
[2016-08-28] MEDS ORDERED: DELSYM30 MG/5 ML PO (02:50)
[2016-08-28] MEDS ORDERED: NORCO1 TA1 PO (02:51)
[2016-08-28] MEDS ORDERED: DSS PO (02:51)
[2016-08-28] MEDS ORDERED: MOMUD PO (02:52)
[2016-08-28] MEDS ORDERED: MELA3 PO (02:52)
[2016-08-28] MEDS ORDERED: ATROVENTUD INH (02:52)
[2016-08-28] MEDS ORDERED: VENTOLIN HFA INH (02:53)
[2016-08-28] MEDS ORDERED: GGEXPUD PO (02:53)
[2016-08-28] MEDS ORDERED: ZOFRAN4 PO (02:53)
[2016-08-28] MEDS ORDERED: TUMSROLL PO (02:54)
[2016-08-28] MEDS ORDERED: BREO ELLIPTA 21 EACH INH (03:02)
[2016-08-28 04:02] LABS: ALLENS TEST Pos; BE (BASE EXCESS) 5.5 MEQ/L (0 +/- 2.5); CARBOXYHEMOGLOBIN 2.2 % (0-3); DEVICE NC; HCO3 (ACTUAL BICARBONATE) 30.9 MEQ/L (23-27); INSTRUMENT SERIAL # 8087; METHEMOGLOBIN 0.2 % (0-3); O2 CONTENT 12.8 VOL% (18-24); OPERATOR ID 33449; PCO2 (CO2 TENSION) 50 MMHG (35-45); PO2 (O2 TENSION) 71 MMHG (79-93); SAMPLE Arterial; pH 7.41 (7.37-7.43)
[2016-08-28 07:07] LABS: % IRON SAT 4 % (20-50); FERRITIN 51 NG/ML (8-252); IRON BINDING CAPACITY 413 MCG/DL (225-410); IRON, SERUM 17 MCG/DL (35-150)
[2016-08-28 21:03] LABS: ASCORBIC ACID (UR NOT ORDER) NEG (NEG); BILIRUBIN, URINE NEGATIVE (NEG); KETONE, URINE NEGATIVE (NEG); LEUKOCYTE ESTERASE(NOT OR LARGE (NEG); WBC (NOT ORDERED) (RFLEX) 39 (0-5)
[2016-08-29 05:40] LABS: BASOPHILS 0.7 %; BASOPHILS ABSOLUTE 0.05 10/3/uL (0.0-0.16); EOSINOPHILS 6.6 %; EOSINOPHILS ABSOLUTE 0.46 10/3/uL (0.0-0.53); HEMATOCRIT 32.4 % (36.0-48.0); HEMOGLOBIN 9.2 g/dL (12.0-16.0); IMMATURE GRANULOCYTES 0.1 %; IMMATURE GRANULOCYTES ABSOLUTE 0.01 10/3/uL (0.0-0.11); LYMPHOCYTES ABSOLUTE 1.11 10/3/uL (0.67-4.30); MEAN CORPUS HGB CONC 28.4 g/dL (32.0-36.0); MEAN CORPUSCULAR HEMOGLOB 24.9 pg (26.0-34.0); MEAN CORPUSCULAR VOLUME 87.6 fL (80-100); MEAN PLATELET VOLUME 9.1 fL (9.2-13.0); MONOCYTES 11.3 %; MONOCYTES ABSOLUTE 0.78 10/3/uL (0.21-1.20); NEUTROPHILS 65.3 %; NEUTROPHILS ABSOLUTE 4.51 10/3/uL (2.02-8.40); PLATELET COUNT 222 10/3/uL (150-400); RBC DISTRIBUTION WIDTH 15.4 % (12.0-16.0); WHITE BLOOD CELLS 6.9 10/3/uL (4.5-10.5)
[2016-08-29 05:42] LABS: MANUAL DIFF NO %
[2016-08-29 05:54] LABS: A/G RATIO 1.2 (0.7-1.9); ALKALINE PHOSPHATASE 79 U/L (45-117); BUN (BLOOD UREA NITROGEN) 20 MG/DL (6-23); CALCIUM, SERUM 8.9 MG/DL (8.5-10.4); CHLORIDE, SERUM 98 MMOL/L (96-112); CO2 (CARBON DIOXIDE) 35 MMOL/L (24-34); CREATININE 0.74 MG/DL (0.55-1.02); GFR AFRICAN AMERICAN 92 ML/MIN (>=60); GFR NON AFRICAN AMERICAN 79 ML/MIN (>=60); GLOBULIN 2.6 G/DL (2.5-4.1); GLUCOSE, SERUM 123 MG/DL (60-99); SGOT(AST) 15 U/L (5-40); SGPT(ALT) 12 U/L (5-65); SODIUM, SERUM 139 MMOL/L (135-148); TOTAL BILIRUBIN 0.8 MG/DL (0-1.2); TOTAL PROTEIN 5.6 G/DL (6.0-8.5)
[2016-08-30 05:59] LABS: BASOPHILS 0.3 %; BASOPHILS ABSOLUTE 0.02 10/3/uL (0.0-0.16); EOSINOPHILS 3.3 %; EOSINOPHILS ABSOLUTE 0.21 10/3/uL (0.0-0.53); HEMATOCRIT 34.8 % (36.0-48.0); HEMOGLOBIN 9.9 g/dL (12.0-16.0); IMMATURE GRANULOCYTES 0.3 %; IMMATURE GRANULOCYTES ABSOLUTE 0.02 10/3/uL (0.0-0.11); LYMPHOCYTES 15.4 %; LYMPHOCYTES ABSOLUTE 0.98 10/3/uL (0.67-4.30); MANUAL DIFF NO %; MEAN CORPUS HGB CONC 28.4 g/dL (32.0-36.0); MEAN CORPUSCULAR HEMOGLOB 25.2 pg (26.0-34.0); MEAN CORPUSCULAR VOLUME 88.5 fL (80-100); MEAN PLATELET VOLUME 9.6 fL (9.2-13.0); MONOCYTES ABSOLUTE 0.64 10/3/uL (0.21-1.20); NEUTROPHILS 70.7 %; NEUTROPHILS ABSOLUTE 4.51 10/3/uL (2.02-8.40); PLATELET COUNT 221 10/3/uL (150-400); RBC DISTRIBUTION WIDTH 15.1 % (12.0-16.0); RED CELL COUNT 3.93 10/6/uL (4.0-5.6); WHITE BLOOD CELLS 6.4 10/3/uL (4.5-10.5)
[2016-08-30 06:13] LABS: BUN (BLOOD UREA NITROGEN) 18 MG/DL (6-23); CALCIUM, SERUM 8.9 MG/DL (8.5-10.4); CHLORIDE, SERUM 99 MMOL/L (96-112); CO2 (CARBON DIOXIDE) 37 MMOL/L (24-34); CREATININE 0.67 MG/DL (0.55-1.02); GFR AFRICAN AMERICAN 100 ML/MIN (>=60); GFR NON AFRICAN AMERICAN 86 ML/MIN (>=60); GLUCOSE, SERUM 137 MG/DL (60-99); POTASSIUM, SERUM 3.7 MMOL/L (3.5-5.3); SODIUM, SERUM 137 MMOL/L (135-148)
[2016-08-31 06:44] LABS: ALBUMIN 2.9 G/DL (3.5-5.0); BUN (BLOOD UREA NITROGEN) 19 MG/DL (6-23); CALCIUM, SERUM 8.8 MG/DL (8.5-10.4); CHLORIDE, SERUM 97 MMOL/L (96-112); CO2 (CARBON DIOXIDE) 37 MMOL/L (24-34); CREATININE 0.62 MG/DL (0.55-1.02); GFR AFRICAN AMERICAN 102 ML/MIN (>=60); GFR NON AFRICAN AMERICAN 88 ML/MIN (>=60); GLOBULIN 2.8 G/DL (2.5-4.1); GLUCOSE, SERUM 131 MG/DL (60-99); POTASSIUM, SERUM 3.9 MMOL/L (3.5-5.3); SGOT(AST) 17 U/L (5-40); SGPT(ALT) 11 U/L (5-65); SODIUM, SERUM 139 MMOL/L (135-148); TOTAL BILIRUBIN 1.1 MG/DL (0-1.2); TOTAL PROTEIN 5.7 G/DL (6.0-8.5)
[2016-08-31 06:45] LABS: ALKALINE PHOSPHATASE 91 U/L (45-117)
[2016-09-01 07:16] LABS: BUN (BLOOD UREA NITROGEN) 19 MG/DL (6-23); CALCIUM, SERUM 9.1 MG/DL (8.5-10.4); CHLORIDE, SERUM 92 MMOL/L (96-112); CO2 (CARBON DIOXIDE) 43 MMOL/L (24-34); CREATININE 0.62 MG/DL (0.55-1.02); GFR AFRICAN AMERICAN 102 ML/MIN (>=60); GFR NON AFRICAN AMERICAN 88 ML/MIN (>=60); GLUCOSE, SERUM 135 MG/DL (60-99); POTASSIUM, SERUM 3.4 MMOL/L (3.5-5.3); SODIUM, SERUM 137 MMOL/L (135-148)
[2016-09-02 07:10] LABS: BASOPHILS 0.2 %; BASOPHILS ABSOLUTE 0.02 10/3/uL (0.0-0.16); EOSINOPHILS 4.3 %; EOSINOPHILS ABSOLUTE 0.35 10/3/uL (0.0-0.53); HEMATOCRIT 36.3 % (36.0-48.0); HEMOGLOBIN 10.4 g/dL (12.0-16.0); IMMATURE GRANULOCYTES 0.4 %; IMMATURE GRANULOCYTES ABSOLUTE 0.03 10/3/uL (0.0-0.11); LYMPHOCYTES 12.5 %; LYMPHOCYTES ABSOLUTE 1.02 10/3/uL (0.67-4.30); MANUAL DIFF NO %; MEAN CORPUS HGB CONC 28.7 g/dL (32.0-36.0); MEAN CORPUSCULAR VOLUME 87.3 fL (80-100); MEAN PLATELET VOLUME 9.8 fL (9.2-13.0); MONOCYTES 9.8 %; NEUTROPHILS 72.8 %; NEUTROPHILS ABSOLUTE 5.94 10/3/uL (2.02-8.40); PLATELET COUNT 257 10/3/uL (150-400); RBC DISTRIBUTION WIDTH 15.2 % (12.0-16.0); RED CELL COUNT 4.16 10/6/uL (4.0-5.6); WHITE BLOOD CELLS 8.2 10/3/uL (4.5-10.5)
[2016-09-02 07:24] LABS: BUN (BLOOD UREA NITROGEN) 20 MG/DL (6-23); CHLORIDE, SERUM 88 MMOL/L (96-112); CO2 (CARBON DIOXIDE) > 45 MMOL/L (24-34); CREATININE 0.59 MG/DL (0.55-1.02); GFR AFRICAN AMERICAN 104 ML/MIN (>=60); GFR NON AFRICAN AMERICAN 90 ML/MIN (>=60); GLUCOSE, SERUM 145 MG/DL (60-99); POTASSIUM, SERUM 3.4 MMOL/L (3.5-5.3); SODIUM, SERUM 137 MMOL/L (135-148)
[2016-09-03 03:53] LABS: BE (BASE EXCESS) 18.1 MEQ/L (0 +/- 2.5); CARBOXYHEMOGLOBIN 2.4 % (0-3); HCO3 (ACTUAL BICARBONATE) 45.8 MEQ/L (23-27); HEMOBLOGIN CONTENT 10.1 G/DL (12-16); INSTRUMENT SERIAL # 8083; METHEMOGLOBIN 0.1 % (0-3); O2 CONTENT 13.6 VOL% (18-24); PCO2 (CO2 TENSION) 74 MMHG (35-45); PO2 (O2 TENSION) 95 MMHG (79-93); pH 7.41 (7.37-7.43)
[2016-09-03 03:54] LABS: ALLENS TEST Pos; DEVICE NC; OPERATOR ID 13415; SAMPLE Arterial
[2016-09-03 05:10] LABS: BASOPHILS 0.3 %; BASOPHILS ABSOLUTE 0.02 10/3/uL (0.0-0.16); EOSINOPHILS 2.4 %; EOSINOPHILS ABSOLUTE 0.17 10/3/uL (0.0-0.53); HEMATOCRIT 35.2 % (36.0-48.0); IMMATURE GRANULOCYTES 0.3 %; IMMATURE GRANULOCYTES ABSOLUTE 0.02 10/3/uL (0.0-0.11); LYMPHOCYTES 21.1 %; LYMPHOCYTES ABSOLUTE 1.51 10/3/uL (0.67-4.30); MEAN CORPUS HGB CONC 28.4 g/dL (32.0-36.0); MEAN CORPUSCULAR HEMOGLOB 24.8 pg (26.0-34.0); MEAN CORPUSCULAR VOLUME 87.1 fL (80-100); MEAN PLATELET VOLUME 9.6 fL (9.2-13.0); MONOCYTES 10.9 %; MONOCYTES ABSOLUTE 0.78 10/3/uL (0.21-1.20); NEUTROPHILS ABSOLUTE 4.67 10/3/uL (2.02-8.40); PLATELET COUNT 276 10/3/uL (150-400); RBC DISTRIBUTION WIDTH 15.2 % (12.0-16.0); RED CELL COUNT 4.04 10/6/uL (4.0-5.6); WHITE BLOOD CELLS 7.2 10/3/uL (4.5-10.5)
[2016-09-03 05:14] LABS: MANUAL DIFF NO %
[2016-09-03 05:26] LABS: BUN (BLOOD UREA NITROGEN) 23 MG/DL (6-23); CALCIUM, SERUM 9.3 MG/DL (8.5-10.4); CHLORIDE, SERUM 84 MMOL/L (96-112); CREATININE 0.52 MG/DL (0.55-1.02); GFR AFRICAN AMERICAN 108 ML/MIN (>=60); GFR NON AFRICAN AMERICAN 93 ML/MIN (>=60); GLUCOSE, SERUM 135 MG/DL (60-99); POTASSIUM, SERUM 3.4 MMOL/L (3.5-5.3); SODIUM, SERUM 132 MMOL/L (135-148)
[2016-09-03 05:28] LABS: CO2 (CARBON DIOXIDE) > 45 MMOL/L (24-34)
[2016-09-04 06:33] LABS: BASOPHILS 0.3 %; BASOPHILS ABSOLUTE 0.02 10/3/uL (0.0-0.16); EOSINOPHILS 1.4 %; EOSINOPHILS ABSOLUTE 0.11 10/3/uL (0.0-0.53); HEMATOCRIT 37.5 % (36.0-48.0); HEMOGLOBIN 10.6 g/dL (12.0-16.0); IMMATURE GRANULOCYTES 0.5 %; IMMATURE GRANULOCYTES ABSOLUTE 0.04 10/3/uL (0.0-0.11); LYMPHOCYTES 14.3 %; LYMPHOCYTES ABSOLUTE 1.12 10/3/uL (0.67-4.30); MEAN CORPUS HGB CONC 28.3 g/dL (32.0-36.0); MEAN CORPUSCULAR HEMOGLOB 24.8 pg (26.0-34.0); MEAN CORPUSCULAR VOLUME 87.8 fL (80-100); MEAN PLATELET VOLUME 9.7 fL (9.2-13.0); MONOCYTES 11.2 %; MONOCYTES ABSOLUTE 0.88 10/3/uL (0.21-1.20); NEUTROPHILS 72.3 %; NEUTROPHILS ABSOLUTE 5.66 10/3/uL (2.02-8.40); PLATELET COUNT 249 10/3/uL (150-400); RBC DISTRIBUTION WIDTH 15.3 % (12.0-16.0); RED CELL COUNT 4.27 10/6/uL (4.0-5.6); WHITE BLOOD CELLS 7.8 10/3/uL (4.5-10.5)
[2016-09-04 06:36] LABS: MANUAL DIFF NO %
[2016-09-04 06:44] LABS: BUN (BLOOD UREA NITROGEN) 24 MG/DL (6-23); CALCIUM, SERUM 9.2 MG/DL (8.5-10.4); CHLORIDE, SERUM 83 MMOL/L (96-112); CREATININE 0.58 MG/DL (0.55-1.02); GFR AFRICAN AMERICAN 105 ML/MIN (>=60); GFR NON AFRICAN AMERICAN 90 ML/MIN (>=60); GLUCOSE, SERUM 138 MG/DL (60-99); PHOSPHORUS, SERUM 3.5 MG/DL (2.5-4.5); POTASSIUM, SERUM 3.7 MMOL/L (3.5-5.3); SODIUM, SERUM 132 MMOL/L (135-148)
[2016-09-04 06:48] LABS: CO2 (CARBON DIOXIDE) > 45 MMOL/L (24-34)
[2016-09-04 08:19] LABS: PROCALCITONIN <0.05 ng/mL (<0.5)
[2016-09-05 09:24] LABS: ALBUMIN 3.1 G/DL (3.5-5.0); BUN (BLOOD UREA NITROGEN) 23 MG/DL (6-23); CALCIUM, SERUM 9.6 MG/DL (8.5-10.4); CHLORIDE, SERUM 87 MMOL/L (96-112); CREATININE 0.65 MG/DL (0.55-1.02); GFR AFRICAN AMERICAN 101 ML/MIN (>=60); GFR NON AFRICAN AMERICAN 87 ML/MIN (>=60); GLUCOSE, SERUM 131 MG/DL (60-99); PHOSPHORUS, SERUM 3.5 MG/DL (2.5-4.5); POTASSIUM, SERUM 3.4 MMOL/L (3.5-5.3); SODIUM, SERUM 132 MMOL/L (135-148)
[2016-09-05 09:30] LABS: CO2 (CARBON DIOXIDE) > 45 MMOL/L (24-34)
[2016-09-05 09:49] LABS: BASOPHILS 0.2 %; BASOPHILS ABSOLUTE 0.02 10/3/uL (0.0-0.16); EOSINOPHILS 4.7 %; EOSINOPHILS ABSOLUTE 0.39 10/3/uL (0.0-0.53); HEMATOCRIT 40.7 % (36.0-48.0); HEMOGLOBIN 11.3 g/dL (12.0-16.0); IMMATURE GRANULOCYTES 0.5 %; IMMATURE GRANULOCYTES ABSOLUTE 0.04 10/3/uL (0.0-0.11); LYMPHOCYTES 13.6 %; LYMPHOCYTES ABSOLUTE 1.13 10/3/uL (0.67-4.30); MEAN CORPUS HGB CONC 27.8 g/dL (32.0-36.0); MEAN CORPUSCULAR VOLUME 86.4 fL (80-100); MEAN PLATELET VOLUME 10.2 fL (9.2-13.0); MONOCYTES 9.4 %; MONOCYTES ABSOLUTE 0.78 10/3/uL (0.21-1.20); NEUTROPHILS 71.6 %; NEUTROPHILS ABSOLUTE 5.93 10/3/uL (2.02-8.40); PLATELET COUNT 226 10/3/uL (150-400); RBC DISTRIBUTION WIDTH 15.1 % (12.0-16.0); RED CELL COUNT 4.71 10/6/uL (4.0-5.6); WHITE BLOOD CELLS 8.3 10/3/uL (4.5-10.5)
[2016-09-05 09:51] LABS: MANUAL DIFF NO %
[2016-09-05 10:32] LABS: HYPOCHROMIA 1+ (3-10/OIF) (0-2/OIF); PLATELET ESTIMATE ADQ (ADEQUATE)
[2016-09-06 06:40] LABS: BASOPHILS 0.3 %; BASOPHILS ABSOLUTE 0.02 10/3/uL (0.0-0.16); EOSINOPHILS 6.5 %; EOSINOPHILS ABSOLUTE 0.42 10/3/uL (0.0-0.53); HEMATOCRIT 36.8 % (36.0-48.0); HEMOGLOBIN 10.6 g/dL (12.0-16.0); IMMATURE GRANULOCYTES 0.2 %; IMMATURE GRANULOCYTES ABSOLUTE 0.01 10/3/uL (0.0-0.11); LYMPHOCYTES 14.7 %; LYMPHOCYTES ABSOLUTE 0.95 10/3/uL (0.67-4.30); MEAN CORPUS HGB CONC 28.8 g/dL (32.0-36.0); MEAN CORPUSCULAR HEMOGLOB 25.1 pg (26.0-34.0); MEAN PLATELET VOLUME 9.9 fL (9.2-13.0); MONOCYTES 10.5 %; MONOCYTES ABSOLUTE 0.68 10/3/uL (0.21-1.20); NEUTROPHILS 67.8 %; NEUTROPHILS ABSOLUTE 4.39 10/3/uL (2.02-8.40); PLATELET COUNT 260 10/3/uL (150-400); RBC DISTRIBUTION WIDTH 15.2 % (12.0-16.0); RED CELL COUNT 4.23 10/6/uL (4.0-5.6); WHITE BLOOD CELLS 6.5 10/3/uL (4.5-10.5)
[2016-09-06 06:41] LABS: MANUAL DIFF NO %
[2016-09-06 06:54] LABS: BUN (BLOOD UREA NITROGEN) 23 MG/DL (6-23); CALCIUM, SERUM 9.6 MG/DL (8.5-10.4); CHLORIDE, SERUM 84 MMOL/L (96-112); CREATININE 0.67 MG/DL (0.55-1.02); GFR AFRICAN AMERICAN 100 ML/MIN (>=60); GFR NON AFRICAN AMERICAN 86 ML/MIN (>=60); GLUCOSE, SERUM 141 MG/DL (60-99); PHOSPHORUS, SERUM 3.2 MG/DL (2.5-4.5); POTASSIUM, SERUM 3.9 MMOL/L (3.5-5.3); SODIUM, SERUM 133 MMOL/L (135-148)
[2016-09-06 06:55] LABS: CO2 (CARBON DIOXIDE) 44 MMOL/L (24-34)
[2016-09-07 05:26] LABS: BASOPHILS 0.4 %; BASOPHILS ABSOLUTE 0.03 10/3/uL (0.0-0.16); EOSINOPHILS 5.9 %; EOSINOPHILS ABSOLUTE 0.42 10/3/uL (0.0-0.53); HEMATOCRIT 34.3 % (36.0-48.0); HEMOGLOBIN 9.8 g/dL (12.0-16.0); IMMATURE GRANULOCYTES 0.3 %; IMMATURE GRANULOCYTES ABSOLUTE 0.02 10/3/uL (0.0-0.11); LYMPHOCYTES 14.6 %; LYMPHOCYTES ABSOLUTE 1.04 10/3/uL (0.67-4.30); MANUAL DIFF NO %; MEAN CORPUS HGB CONC 28.6 g/dL (32.0-36.0); MEAN CORPUSCULAR HEMOGLOB 24.9 pg (26.0-34.0); MEAN CORPUSCULAR VOLUME 87.1 fL (80-100); MEAN PLATELET VOLUME 9.4 fL (9.2-13.0); MONOCYTES 12.2 %; MONOCYTES ABSOLUTE 0.87 10/3/uL (0.21-1.20); NEUTROPHILS 66.6 %; NEUTROPHILS ABSOLUTE 4.73 10/3/uL (2.02-8.40); PLATELET COUNT 272 10/3/uL (150-400); RBC DISTRIBUTION WIDTH 15.4 % (12.0-16.0); RED CELL COUNT 3.94 10/6/uL (4.0-5.6); WHITE BLOOD CELLS 7.1 10/3/uL (4.5-10.5)
[2016-09-07 05:42] LABS: BUN (BLOOD UREA NITROGEN) 24 MG/DL (6-23); CALCIUM, SERUM 9.4 MG/DL (8.5-10.4); CHLORIDE, SERUM 85 MMOL/L (96-112); CREATININE 0.61 MG/DL (0.55-1.02); GFR AFRICAN AMERICAN 103 ML/MIN (>=60); GFR NON AFRICAN AMERICAN 89 ML/MIN (>=60); GLUCOSE, SERUM 126 MG/DL (60-99); POTASSIUM, SERUM 3.8 MMOL/L (3.5-5.3); SODIUM, SERUM 133 MMOL/L (135-148)
[2016-09-07 05:47] LABS: CO2 (CARBON DIOXIDE) 42 MMOL/L (24-34)
[2016-09-08 07:19] LABS: BUN (BLOOD UREA NITROGEN) 4 MG/DL (6-23); CALCIUM, SERUM 8.5 MG/DL (8.5-10.4); CHLORIDE, SERUM 100 MMOL/L (96-112); CO2 (CARBON DIOXIDE) 39 MMOL/L (24-34); CREATININE < 0.15 MG/DL (0.55-1.02); GFR AFRICAN AMERICAN 163 ML/MIN (>=60); GFR NON AFRICAN AMERICAN 141 ML/MIN (>=60); GLUCOSE, SERUM 73 MG/DL (60-99); SODIUM, SERUM 144 MMOL/L (135-148)
[2016-09-08 18:41] LABS: CALCIUM, SERUM 9.3 MG/DL (8.5-10.4)
[2016-09-08 18:43] LABS: BUN (BLOOD UREA NITROGEN) 25 MG/DL (6-23); CHLORIDE, SERUM 85 MMOL/L (96-112); CO2 (CARBON DIOXIDE) > 45 MMOL/L (24-34); CREATININE 0.77 MG/DL (0.55-1.02); GFR AFRICAN AMERICAN 88 ML/MIN (>=60); GFR NON AFRICAN AMERICAN 76 ML/MIN (>=60); GLUCOSE, SERUM 140 MG/DL (60-99); POTASSIUM, SERUM 4.6 MMOL/L (3.5-5.3); SODIUM, SERUM 132 MMOL/L (135-148)
[2016-09-10 06:42] LABS: BASOPHILS 0.2 %; BASOPHILS ABSOLUTE 0.02 10/3/uL (0.0-0.16); EOSINOPHILS 3.1 %; EOSINOPHILS ABSOLUTE 0.35 10/3/uL (0.0-0.53); HEMATOCRIT 35.8 % (36.0-48.0); HEMOGLOBIN 10.2 g/dL (12.0-16.0); IMMATURE GRANULOCYTES 0.4 %; IMMATURE GRANULOCYTES ABSOLUTE 0.05 10/3/uL (0.0-0.11); LYMPHOCYTES 9.5 %; LYMPHOCYTES ABSOLUTE 1.06 10/3/uL (0.67-4.30); MEAN CORPUS HGB CONC 28.5 g/dL (32.0-36.0); MEAN CORPUSCULAR HEMOGLOB 24.8 pg (26.0-34.0); MEAN CORPUSCULAR VOLUME 87.1 fL (80-100); MEAN PLATELET VOLUME 9.5 fL (9.2-13.0); MONOCYTES 9.6 %; MONOCYTES ABSOLUTE 1.08 10/3/uL (0.21-1.20); NEUTROPHILS 77.2 %; NEUTROPHILS ABSOLUTE 8.64 10/3/uL (2.02-8.40); PLATELET COUNT 328 10/3/uL (150-400); RBC DISTRIBUTION WIDTH 16.2 % (12.0-16.0); RED CELL COUNT 4.11 10/6/uL (4.0-5.6)
[2016-09-10 06:49] LABS: MANUAL DIFF NO %; WHITE BLOOD CELLS 11.2 10/3/uL (4.5-10.5)
[2016-09-10 06:50] LABS: CALCIUM, SERUM 9.3 MG/DL (8.5-10.4); CHLORIDE, SERUM 82 MMOL/L (96-112); CREATININE 0.85 MG/DL (0.55-1.02); GFR AFRICAN AMERICAN 78 ML/MIN (>=60); GFR NON AFRICAN AMERICAN 67 ML/MIN (>=60); GLUCOSE, SERUM 124 MG/DL (60-99); POTASSIUM, SERUM 4.1 MMOL/L (3.5-5.3); SODIUM, SERUM 132 MMOL/L (135-148)
[2016-09-10 06:51] LABS: BUN (BLOOD UREA NITROGEN) 38 MG/DL (6-23); CO2 (CARBON DIOXIDE) > 45 MMOL/L (24-34)
[2016-09-10 13:19] LABS: ALLENS TEST Pos; CARBOXYHEMOGLOBIN 2.5 % (0-3); DEVICE NC; HCO3 (ACTUAL BICARBONATE) 39.1 MEQ/L (23-27); HEMOBLOGIN CONTENT 11.2 G/DL (12-16); INSTRUMENT SERIAL # 8083; METHEMOGLOBIN 0.2 % (0-3); O2 CONTENT 15.1 VOL% (18-24); OPERATOR ID 14904; PCO2 (CO2 TENSION) 65 MMHG (35-45); PO2 (O2 TENSION) 97 MMHG (79-93); SAMPLE Arterial
[2016-09-12 06:49] LABS: BUN (BLOOD UREA NITROGEN) 38 MG/DL (6-23); CALCIUM, SERUM 9.5 MG/DL (8.5-10.4); CHLORIDE, SERUM 82 MMOL/L (96-112); CREATININE 0.85 MG/DL (0.55-1.02); GFR AFRICAN AMERICAN 78 ML/MIN (>=60); GFR NON AFRICAN AMERICAN 67 ML/MIN (>=60); POTASSIUM, SERUM 3.5 MMOL/L (3.5-5.3); SODIUM, SERUM 129 MMOL/L (135-148)
[2016-09-12 06:50] LABS: CO2 (CARBON DIOXIDE) 45 MMOL/L (24-34); GLUCOSE, SERUM 149 MG/DL (60-99)
[2016-09-12 15:30] LABS: BE (BASE EXCESS) 13.3 MEQ/L (0 +/- 2.5); CARBOXYHEMOGLOBIN 1.8 % (0-3); HCO3 (ACTUAL BICARBONATE) 40.4 MEQ/L (23-27); HEMOBLOGIN CONTENT 10.7 G/DL (12-16); INSTRUMENT SERIAL # 8083; METHEMOGLOBIN 0.3 % (0-3); O2 CONTENT 14.2 VOL% (18-24); PCO2 (CO2 TENSION) 67 MMHG (35-45); PO2 (O2 TENSION) 83 MMHG (79-93)
[2016-09-12 15:31] LABS: ALLENS TEST Pos; SAMPLE Arterial
[2016-09-15 04:33] LABS: BASOPHILS 0.3 %; BASOPHILS ABSOLUTE 0.03 10/3/uL (0.0-0.16); EOSINOPHILS 0.9 %; HEMATOCRIT 36.4 % (36.0-48.0); HEMOGLOBIN 10.5 g/dL (12.0-16.0); IMMATURE GRANULOCYTES 1.5 %; IMMATURE GRANULOCYTES ABSOLUTE 0.17 10/3/uL (0.0-0.11); LYMPHOCYTES 11.5 %; LYMPHOCYTES ABSOLUTE 1.31 10/3/uL (0.67-4.30); MANUAL DIFF NO %; MEAN CORPUS HGB CONC 28.8 g/dL (32.0-36.0); MEAN CORPUSCULAR HEMOGLOB 25.1 pg (26.0-34.0); MEAN CORPUSCULAR VOLUME 87.1 fL (80-100); MEAN PLATELET VOLUME 9.2 fL (9.2-13.0); MONOCYTES ABSOLUTE 1.25 10/3/uL (0.21-1.20); NEUTROPHILS 74.8 %; NEUTROPHILS ABSOLUTE 8.53 10/3/uL (2.02-8.40); PLATELET COUNT 405 10/3/uL (150-400); RBC DISTRIBUTION WIDTH 16.6 % (12.0-16.0); RED CELL COUNT 4.18 10/6/uL (4.0-5.6); WHITE BLOOD CELLS 11.4 10/3/uL (4.5-10.5)
[2016-09-15 04:40] LABS: BUN (BLOOD UREA NITROGEN) 36 MG/DL (6-23); CALCIUM, SERUM 9.6 MG/DL (8.5-10.4); CHLORIDE, SERUM 82 MMOL/L (96-112); CREATININE 0.81 MG/DL (0.55-1.02); GFR AFRICAN AMERICAN 82 ML/MIN (>=60); GFR NON AFRICAN AMERICAN 71 ML/MIN (>=60); POTASSIUM, SERUM 3.8 MMOL/L (3.5-5.3); SODIUM, SERUM 126 MMOL/L (135-148)
[2016-09-15 04:41] LABS: CO2 (CARBON DIOXIDE) 41 MMOL/L (24-34); GLUCOSE, SERUM 115 MG/DL (60-99)
[2016-09-16 05:52] LABS: HEMATOCRIT 35.9 % (36.0-48.0); HEMOGLOBIN 10.3 g/dL (12.0-16.0); MEAN CORPUS HGB CONC 28.7 g/dL (32.0-36.0); MEAN CORPUSCULAR HEMOGLOB 25.1 pg (26.0-34.0); MEAN CORPUSCULAR VOLUME 87.3 fL (80-100); MEAN PLATELET VOLUME 9.5 fL (9.2-13.0); NUCLEATED RED BLOOD CELLS 0.5 /100WBC (0-0); PLATELET COUNT 493 10/3/uL (150-400); RBC DISTRIBUTION WIDTH 16.6 % (12.0-16.0); RED CELL COUNT 4.11 10/6/uL (4.0-5.6); WHITE BLOOD CELLS 13.6 10/3/uL (4.5-10.5)
[2016-09-16 05:54] LABS: CALCIUM, SERUM 9.4 MG/DL (8.5-10.4); CHLORIDE, SERUM 80 MMOL/L (96-112); CO2 (CARBON DIOXIDE) 39 MMOL/L (24-34); CREATININE 0.93 MG/DL (0.55-1.02); GFR AFRICAN AMERICAN 70 ML/MIN (>=60); GFR NON AFRICAN AMERICAN 60 ML/MIN (>=60); GLUCOSE, SERUM 120 MG/DL (60-99); POTASSIUM, SERUM 3.9 MMOL/L (3.5-5.3); SODIUM, SERUM 126 MMOL/L (135-148)
[2016-09-16 05:55] LABS: BUN (BLOOD UREA NITROGEN) 41 MG/DL (6-23); MANUAL DIFF YES %
[2016-09-16 06:32] LABS: BAND NEUTROPHILS 2 %; IMMATURE GRANS ABSOLUTE (CALC) 0.27 10/3/uL (0.0-0.11); LYMPHOCYTES 6 %; LYMPHOCYTES ABSOLUTE (CALC) 0.82 10/3/uL (0.67-4.30); METAMYELOCYTES 2 %; MONOCYTES 2 %; MONOCYTES ABSOLUTE (CALC) 0.27 10/3/uL (0.21-1.20); NEUTROPHILS ABSOLUTE (CALC) 12.24 10/3/uL (2.02-8.40); PLATELET ESTIMATE SLT INC (ADEQUATE); SEGMENTED NEUTROPHIL (0) 88 %; TOTAL NUCLEATED CELLS 100
[2016-09-16 06:33] LABS: ANISOCYTOSIS 1+ (5-10/OIF) (0-5/OIF); POLYCHROMASIA 1+ (2-5/OIF) (0-1/OIF)
[2016-09-16 06:43] LABS: OSMOLALITY, URINE 381 MOSM/KG (50-1200)
[2016-09-16 06:48] LABS: SODIUM, URINE < 5 MEQ/L
[2016-09-17 07:11] LABS: HEMATOCRIT 33.9 % (36.0-48.0); HEMOGLOBIN 9.9 g/dL (12.0-16.0); MEAN CORPUS HGB CONC 29.2 g/dL (32.0-36.0); MEAN CORPUSCULAR HEMOGLOB 24.6 pg (26.0-34.0); MEAN PLATELET VOLUME 8.9 fL (9.2-13.0); NUCLEATED RED BLOOD CELLS 0.3 /100WBC (0-0); PLATELET COUNT 432 10/3/uL (150-400); RBC DISTRIBUTION WIDTH 16.7 % (12.0-16.0); RED CELL COUNT 4.02 10/6/uL (4.0-5.6)
[2016-09-17 07:12] LABS: MANUAL DIFF YES %; MEAN CORPUSCULAR VOLUME 84.3 fL (80-100); WHITE BLOOD CELLS 26.8 10/3/uL (4.5-10.5)
[2016-09-17 07:42] LABS: CHLORIDE, SERUM 81 MMOL/L (96-112); CREATININE 1.21 MG/DL (0.55-1.02); GFR AFRICAN AMERICAN 51 ML/MIN (>=60); GFR NON AFRICAN AMERICAN 44 ML/MIN (>=60); GLUCOSE, SERUM 131 MG/DL (60-99); SODIUM, SERUM 128 MMOL/L (135-148)
[2016-09-17 07:43] LABS: BUN (BLOOD UREA NITROGEN) 53 MG/DL (6-23); CO2 (CARBON DIOXIDE) 29 MMOL/L (24-34); POTASSIUM, SERUM 5.3 MMOL/L (3.5-5.3)
[2016-09-17 07:48] LABS: BAND NEUTROPHILS 9 %; LYMPHOCYTES 3 %; MONOCYTES 3 %; NEUTROPHILS ABSOLUTE (CALC) 25.19 10/3/uL (2.02-8.40); SEGMENTED NEUTROPHIL (0) 85 %; TOTAL NUCLEATED CELLS 100
[2016-09-17 07:49] LABS: HYPOCHROMIA 1+ (3-10/OIF) (0-2/OIF); PLATELET ESTIMATE SLT INC (ADEQUATE); POLYCHROMASIA 1+ (2-5/OIF) (0-1/OIF)
[2016-09-17 17:31] LABS: ULTRASENSITIVE TSH 1.63 MCIU/ML (0.358-3.740)
[2016-09-17 18:00] LABS: PROCALCITONIN 0.51 ng/mL (<0.5)
[2016-09-18 01:03] LABS: ASCORBIC ACID (UR NOT ORDER) NEG (NEG); BILIRUBIN, URINE NEGATIVE (NEG); KETONE, URINE NEGATIVE (NEG); LEUKOCYTE ESTERASE(NOT OR LARGE (NEG)
[2016-09-18 01:04] LABS: WBC (NOT ORDERED) (RFLEX) > 182 (0-5)
[2016-09-18 17:15] LABS: BUN (BLOOD UREA NITROGEN) 57 MG/DL (6-23); CALCIUM, SERUM 9.3 MG/DL (8.5-10.4); CHLORIDE, SERUM 78 MMOL/L (96-112); CO2 (CARBON DIOXIDE) 38 MMOL/L (24-34); CREATININE 1.36 MG/DL (0.55-1.02); GFR AFRICAN AMERICAN 44 ML/MIN (>=60); GFR NON AFRICAN AMERICAN 38 ML/MIN (>=60); GLUCOSE, SERUM 189 MG/DL (60-99); POTASSIUM, SERUM 4.5 MMOL/L (3.5-5.3); SODIUM, SERUM 126 MMOL/L (135-148)
[2016-09-18 17:22] LABS: BASOPHILS 0.1 %; BASOPHILS ABSOLUTE 0.01 10/3/uL (0.0-0.16); EOSINOPHILS 0.6 %; HEMATOCRIT 34.6 % (36.0-48.0); HEMOGLOBIN 9.9 g/dL (12.0-16.0); IMMATURE GRANULOCYTES 1.1 %; IMMATURE GRANULOCYTES ABSOLUTE 0.18 10/3/uL (0.0-0.11); LYMPHOCYTES 3.5 %; LYMPHOCYTES ABSOLUTE 0.55 10/3/uL (0.67-4.30); MANUAL DIFF NO %; MEAN CORPUS HGB CONC 28.6 g/dL (32.0-36.0); MEAN CORPUSCULAR HEMOGLOB 24.4 pg (26.0-34.0); MEAN CORPUSCULAR VOLUME 85.4 fL (80-100); MEAN PLATELET VOLUME 9.2 fL (9.2-13.0); MONOCYTES 5.4 %; MONOCYTES ABSOLUTE 0.86 10/3/uL (0.21-1.20); NEUTROPHILS 89.3 %; NEUTROPHILS ABSOLUTE 14.23 10/3/uL (2.02-8.40); NUCLEATED RED BLOOD CELLS 0.3 /100WBC (0-0); PLATELET COUNT 471 10/3/uL (150-400); RBC DISTRIBUTION WIDTH 16.9 % (12.0-16.0); RED CELL COUNT 4.05 10/6/uL (4.0-5.6); WHITE BLOOD CELLS 15.9 10/3/uL (4.5-10.5)
[2016-09-20 16:03] LABS: BASOPHILS 0.1 %; BASOPHILS ABSOLUTE 0.02 10/3/uL (0.0-0.16); EOSINOPHILS 0.3 %; EOSINOPHILS ABSOLUTE 0.04 10/3/uL (0.0-0.53); HEMATOCRIT 32.4 % (36.0-48.0); HEMOGLOBIN 9.2 g/dL (12.0-16.0); IMMATURE GRANULOCYTES 1.5 %; LYMPHOCYTES 3.7 %; MEAN CORPUS HGB CONC 28.4 g/dL (32.0-36.0); MEAN CORPUSCULAR HEMOGLOB 24.4 pg (26.0-34.0); MEAN CORPUSCULAR VOLUME 85.9 fL (80-100); MONOCYTES ABSOLUTE 0.68 10/3/uL (0.21-1.20); NEUTROPHILS 89.4 %; NUCLEATED RED BLOOD CELLS 1.1 /100WBC (0-0); PLATELET COUNT 449 10/3/uL (150-400); RBC DISTRIBUTION WIDTH 16.9 % (12.0-16.0); RED CELL COUNT 3.77 10/6/uL (4.0-5.6); WHITE BLOOD CELLS 13.6 10/3/uL (4.5-10.5)
[2016-09-20 16:11] LABS: MANUAL DIFF NO %
[2016-09-20 16:19] LABS: ALBUMIN 2.9 G/DL (3.5-5.0); ALKALINE PHOSPHATASE 126 U/L (45-117); BUN (BLOOD UREA NITROGEN) 73 MG/DL (6-23); CALCIUM, SERUM 9.2 MG/DL (8.5-10.4); CHLORIDE, SERUM 79 MMOL/L (96-112); CO2 (CARBON DIOXIDE) 38 MMOL/L (24-34); CREATININE 1.48 MG/DL (0.55-1.02); GFR AFRICAN AMERICAN 39 ML/MIN (>=60); GFR NON AFRICAN AMERICAN 34 ML/MIN (>=60); GLOBULIN 2.9 G/DL (2.5-4.1); GLUCOSE, SERUM 153 MG/DL (60-99); POTASSIUM, SERUM 4.7 MMOL/L (3.5-5.3); SGOT(AST) 33 U/L (5-40); SGPT(ALT) 19 U/L (5-65); SODIUM, SERUM 124 MMOL/L (135-148); TOTAL BILIRUBIN 0.8 MG/DL (0-1.2); TOTAL PROTEIN 5.8 G/DL (6.0-8.5)
[2016-09-21 11:09] LABS: BUN (BLOOD UREA NITROGEN) 71 MG/DL (6-23); CALCIUM, SERUM 9.1 MG/DL (8.5-10.4); CHLORIDE, SERUM 80 MMOL/L (96-112); CO2 (CARBON DIOXIDE) 36 MMOL/L (24-34); CREATININE 1.23 MG/DL (0.55-1.02); GFR AFRICAN AMERICAN 49 ML/MIN (>=60); GFR NON AFRICAN AMERICAN 43 ML/MIN (>=60); GLUCOSE, SERUM 137 MG/DL (60-99); POTASSIUM, SERUM 4.2 MMOL/L (3.5-5.3); SODIUM, SERUM 125 MMOL/L (135-148)
[2016-09-21 11:11] LABS: BASOPHILS 0.2 %; BASOPHILS ABSOLUTE 0.02 10/3/uL (0.0-0.16); EOSINOPHILS 0.5 %; EOSINOPHILS ABSOLUTE 0.06 10/3/uL (0.0-0.53); HEMATOCRIT 32.1 % (36.0-48.0); HEMOGLOBIN 9.1 g/dL (12.0-16.0); IMMATURE GRANULOCYTES 1.6 %; IMMATURE GRANULOCYTES ABSOLUTE 0.21 10/3/uL (0.0-0.11); LYMPHOCYTES 7.1 %; MEAN CORPUS HGB CONC 28.3 g/dL (32.0-36.0); MEAN CORPUSCULAR HEMOGLOB 24.3 pg (26.0-34.0); MEAN CORPUSCULAR VOLUME 85.6 fL (80-100); MEAN PLATELET VOLUME 8.9 fL (9.2-13.0); MONOCYTES 6.5 %; MONOCYTES ABSOLUTE 0.83 10/3/uL (0.21-1.20); NEUTROPHILS 84.1 %; NEUTROPHILS ABSOLUTE 10.73 10/3/uL (2.02-8.40); NUCLEATED RED BLOOD CELLS 1.3 /100WBC (0-0); PLATELET COUNT 419 10/3/uL (150-400); RBC DISTRIBUTION WIDTH 17.1 % (12.0-16.0); RED CELL COUNT 3.75 10/6/uL (4.0-5.6); WHITE BLOOD CELLS 12.8 10/3/uL (4.5-10.5)
[2016-09-21 11:17] LABS: MANUAL DIFF NO %
[2016-09-22 06:00] LABS: BASOPHILS 0.1 %; BASOPHILS ABSOLUTE 0.01 10/3/uL (0.0-0.16); EOSINOPHILS 0.6 %; EOSINOPHILS ABSOLUTE 0.06 10/3/uL (0.0-0.53); HEMATOCRIT 30.3 % (36.0-48.0); HEMOGLOBIN 8.7 g/dL (12.0-16.0); IMMATURE GRANULOCYTES 2.2 %; IMMATURE GRANULOCYTES ABSOLUTE 0.23 10/3/uL (0.0-0.11); LYMPHOCYTES 10.6 %; LYMPHOCYTES ABSOLUTE 1.12 10/3/uL (0.67-4.30); MEAN CORPUS HGB CONC 28.7 g/dL (32.0-36.0); MEAN CORPUSCULAR HEMOGLOB 24.7 pg (26.0-34.0); MEAN CORPUSCULAR VOLUME 86.1 fL (80-100); MEAN PLATELET VOLUME 8.7 fL (9.2-13.0); MONOCYTES 7.8 %; MONOCYTES ABSOLUTE 0.83 10/3/uL (0.21-1.20); NEUTROPHILS 78.7 %; NEUTROPHILS ABSOLUTE 8.35 10/3/uL (2.02-8.40); NUCLEATED RED BLOOD CELLS 0.8 /100WBC (0-0); PLATELET COUNT 414 10/3/uL (150-400); RBC DISTRIBUTION WIDTH 17.1 % (12.0-16.0); RED CELL COUNT 3.52 10/6/uL (4.0-5.6); WHITE BLOOD CELLS 10.6 10/3/uL (4.5-10.5)
[2016-09-22 06:04] LABS: MANUAL DIFF NO %
[2016-09-22 06:08] LABS: BUN (BLOOD UREA NITROGEN) 69 MG/DL (6-23); CHLORIDE, SERUM 83 MMOL/L (96-112); CO2 (CARBON DIOXIDE) 37 MMOL/L (24-34); CREATININE 1.11 MG/DL (0.55-1.02); GFR AFRICAN AMERICAN 56 ML/MIN (>=60); GFR NON AFRICAN AMERICAN 48 ML/MIN (>=60); GLUCOSE, SERUM 130 MG/DL (60-99); POTASSIUM, SERUM 3.9 MMOL/L (3.5-5.3); SODIUM, SERUM 129 MMOL/L (135-148)
== END 2016-09-24 03:47 | disposition hospice, inpatient (51) | DRG 291 ==
LOC: ER 23:55 → 2SO 08-28 03:41
PROVIDERS: Hospitalist; Internal Medicine; Internal Medicine Critical Care Medicine; Nurse Practitioner Family; Specialist; Student in an Organized Health Care Education/Training Program
DX: I50.33 Acute on chronic diastolic (congestive) heart failure (principal); J18.9 Pneumonia, unspecified organism; J96.11 Chronic respiratory failure with hypoxia; J96.12 Chronic respiratory failure with hypercapnia; M86.172 Other acute osteomyelitis, left ankle and foot; C85.90 Non-Hodgkin lymphoma, unspecified, unspecified site; I31.3 Pericardial effusion (noninflammatory); R18.8 Other ascites; E66.2 Morbid (severe) obesity with alveolar hypoventilation; Z68.42 Body mass index [BMI] 45.0-49.9, adult; R04.2 Hemoptysis; E87.1 Hypo-osmolality and hyponatremia; N39.0 Urinary tract infection, site not specified; I27.81 Cor pulmonale (chronic); Z51.5 Encounter for palliative care; I27.2 Other secondary pulmonary hypertension; F32.9 Major depressive disorder, single episode, unspecified; D64.9 Anemia, unspecified; J44.9 Chronic obstructive pulmonary disease, unspecified; Z66 Do not resuscitate; I48.2 Chronic atrial fibrillation; E11.9 Type 2 diabetes mellitus without complications; E03.9 Hypothyroidism, unspecified; E66.01 Morbid (severe) obesity due to excess calories; Y95 Nosocomial condition; Z88.5 Allergy status to narcotic agent; Z88.6 Allergy status to analgesic agent; Z88.8 Allergy status to other drugs, medicaments and biological substances; Z91.19 Patient's noncompliance with other medical treatment and regimen; Z98.890 Other specified postprocedural states; Z99.81 Dependence on supplemental oxygen
CPT/HCPCS: 36415; 36600; 71010; 71020; 71250; 80048; 80053; 80069; 80202; 81001; 82272; 82570; 82728; 82805; 82962; 83540; 83550; 83605; 83735; 83880; 83930; 83935; 84100; 84132; 84145; 84300; 84443; 84484; 85025; 85610; 85730; 86850; 86900; 86901; 87040; 87070; 87077; 87086; 87186; 87205; 93005; 94640; 94660; 94667; 94668; 94762; 96374; 97110-GP; 97161-GP; 97164-GP; 97530-GP; 99285; A9270-GY; C8929; G8978-CM-GP; G8979-CK-GP; J1120; J1940; J2405; J2543; J3370; J3475; Q9957